=== PATIENT | female | born 1980 | race Caucasian/White ===

== ENCOUNTER → 2018-01-23 | Outpatient (CLI) | payer OTHER ==
[~2018-01-23] MED LIST: NORE0.3515 PO
[2018-01-23 12:02] LABS: BASOPHILS # (AUTO) 0.01 x10^3/uL (0-0.1); BASOPHILS % (AUTO) 0 % (0-1); EOSINOPHILS % (AUTO) 1 % (1-7); LYMPHOCYTES # (AUTO) 1.78 x10^3/uL (1-3.4); LYMPHOCYTES % (AUTO) 23 % (22-44); MD NO; MEAN CORPUSCULAR HEMOGLOBIN 29.6 pg (27.0-34.8); MEAN CORPUSCULAR HGB CONC 33.6 g/dL (32.4-35.8); MEAN CORPUSCULAR VOLUME 88.1 fL (80-100); MEAN PLATELET VOLUME 8.1 fL (7.4-10.4); MONOCYTES % (AUTO) 8 % (2-9); NEUTROPHILS # (AUTO) 5.17 x10^3/uL (1.8-6.8); NEUTROPHILS % (AUTO) 68 % (42-75); PLATELET COUNT 223 x10^3/uL (130-400); RED BLOOD COUNT 4.98 x10^6/uL (3.82-5.3); RED CELL DISTRIBUTION WIDTH 12.7 % (9.6-15.2)
[2018-01-23 12:02] LABS: CULTURE INDICATED? YES; HCG UR SG 1.015 (1.003-1.030); MICROSCOPIC AUTO
== END ==
LOC: STAR 10:58
PROVIDERS: ATTEND Obstetrics & Gynecology
DX: Z01.818 Encounter for other preprocedural examination (principal)
CPT/HCPCS: 36415; 81001; 81025; 85025; 87086

== ENCOUNTER 2018-02-02 06:54 | Day surgery (SDC) | payer OTHER ==
[2018-01-23 11:30] VITALS: BP 97/59
[~2018-02-02] VITALS: Ht 175.3 cm; Wt 79.7 kg
[2018-02-02] MEDS ORDERED: ONDANSETRON ODT 8 MG PO ONE (07:30)
[2018-02-02] MEDS ORDERED: GABAPENTIN 300 MG CAPSULE PO ONE (07:30)
[2018-02-02] MEDS ORDERED: OxyconTIN ER 20 MG TAB.ER PO ONE (07:30)
[2018-02-02] MEDS ORDERED: ACETAMINOPHEN 500 MG TABLET PO ONE (07:30)
[2018-02-02] MEDS ORDERED: MIDAZOLAM 1 MG/ML, 2ML ONE (07:57)
[2018-02-02] MEDS ORDERED: FENTANYL PF 250 MCG/5ML ONE (07:57)
[2018-02-02] MEDS ORDERED: LACTATED RINGERS 1,000 ML IV SCH (08:00)
[2018-02-02] MEDS ORDERED: BUPIVACAINE/PF 0.25% ONE (08:10)
[2018-02-02] MEDS ORDERED: FLUORESCEIN SODIUM 500 MG/5 ML ONE (08:10)
[2018-02-02] MEDS ORDERED: EPINEPHRINE 1 MG/ML, 1ML ONE (08:10)
[2018-02-02] MEDS ORDERED: CEFAZOLIN 1,000 MG ONE (08:58)
[2018-02-02] MEDS ORDERED: ROCURONIUM 10 MG/ML,10ML ONE (08:58)
[2018-02-02] MEDS ORDERED: DEXAMETHASONE 4 MG/ML, 5ML ONE (08:58)
[2018-02-02] MEDS ORDERED: SUCCINYLCHOLINE 20 MG/ML, 10ML ONE (08:58)
[2018-02-02] MEDS ORDERED: PROPOFOL 10 MG/ML, 20ML ONE (08:58)
[2018-02-02] MEDS ORDERED: hydrALAzine 20 MG/ML, 1ML IV PRN (10:00)
[2018-02-02] MEDS ORDERED: MIDAZOLAM 1 MG/ML, 2ML IV PRN (10:00)
[2018-02-02] MEDS ORDERED: ALBUTEROL SULFATE 2.5 MG/3 ML NPPB PRN (10:00)
[2018-02-02] MEDS ORDERED: OXYcodone 5 MG/5 ML ORAL.SOL UDC PO PRN (10:00)
[2018-02-02] MEDS ORDERED: PROMETHAZINE 25 MG/ML, 1ML IV PRN (10:00)
[2018-02-02] MEDS ORDERED: MORPHINE SULFATE 4 MG/ML, 1ML IVPush PRN (10:00)
[2018-02-02] MEDS ORDERED: FENTANYL PF 100 MCG/2ML IV PRN (10:00)
[2018-02-02] MEDS ORDERED: MEPERIDINE/PF 25MG/0.5ML IVPush PRN (10:00)
[2018-02-02] MEDS ORDERED: LABETALOL 5MG/ML, 20ML IV PRN (10:00)
[2018-02-02] MEDS ORDERED: PROMETHAZINE 12.5 MG SUPP PR PRN (10:00)
[2018-02-02] MEDS ORDERED: ONDANSETRON ODT 8 MG PO PRN (10:00)
== END 2018-02-02 18:30 | disposition home or self-care (01) ==
LOC: OUT 06:54
PROVIDERS: ATTEND Obstetrics & Gynecology
DX: N92.0 Excessive and frequent menstruation with regular cycle (principal); N94.6 Dysmenorrhea, unspecified; N80.9 Endometriosis, unspecified
CPT/HCPCS: 36415; 58552; 85014; 85018; 86850; 86900; 88307; J0171; J0330; J0690; J1100; J2250; J2704; J3010; J3490; J7120; Q0162